=== PATIENT | male | born 1960 | race African-American/Black ===

== ENCOUNTER 2017-12-23 07:59 | Emergency (ER) | payer OTHER ==
[~2017-12-23] VITALS: Ht 188 cm; Wt 115.0 kg
[~2017-12-23 07:59] MED LIST: ASPIRIN81 M1 PO; FISH OIL 1,0001 EA10 PO; GLIPIZIDE XL10 MG PO; HYDROCHLOROTHIA25 MG PO; INDOCIN50 MG PO; LANTUS 3 M100 UNITS1 SQ; LEVEMIR FL100 UNIT/1 SC; LISINOPRIL40 MG PO; NIFEDIPINE ER30 MG PO; VENTOLIN HFA18 GM IH
[2017-12-23 11:52] VITALS: BP 185/98
[2017-12-23] MEDS ORDERED: FLONASE16 G1 BOTH NARES (12:37)
[2017-12-23] MEDS ORDERED: ZITHROMAX250 MG PO (12:49)
== END 2017-12-23 12:57 | disposition home or self-care (01) ==
LOC: EME 07:59
DX: B30.9 Viral conjunctivitis, unspecified (principal); J40 Bronchitis, not specified as acute or chronic; I10 Essential (primary) hypertension; E11.9 Type 2 diabetes mellitus without complications; Z79.4 Long term (current) use of insulin; Z79.82 Long term (current) use of aspirin; Z85.46 Personal history of malignant neoplasm of prostate
CPT/HCPCS: 71046; 99281; 99285